=== PATIENT | male | born 1955 | race Caucasian/White ===

== ENCOUNTER 2023-12-10 08:15 | Day surgery (SDC) | payer OTHER ==
[2023-12-09 10:35] LABS: BASOPHILS # (AUTO) 0.1 K/uL (0.0-0.2); EOSINOPHILS # (AUTO) 0.2 K/uL (0.0-0.4); EOSINOPHILS % (AUTO) 2.7 % (0.0-4.0); HEMATOCRIT 47.9 % (36-54); HEMOGLOBIN 15.9 g/dL (14.0-18.0); LYMPHOCYTES # (AUTO) 2.3 K/uL (1.0-5.5); LYMPHOCYTES % (AUTO) 26.9 % (20.5-51.5); MEAN CORPUSCULAR HEMOGLOBIN 29 pg (27-31); MEAN CORPUSCULAR HGB CONC 33 % (32-36); MEAN CORPUSCULAR VOLUME 87 fL (79.0-98.0); MONOCYTES # (AUTO) 0.7 K/uL (0.0-1.0); MONOCYTES % (AUTO) 8.3 % (1.7-9.3); NEUTROPHILS # (AUTO) 5.2 K/uL (1.8-7.7); NEUTROPHILS % (AUTO) 61.1 % (40.0-70.0); PLATELET COUNT (AUTO) 247 K/uL (130-430); RED BLOOD CELL COUNT(AUTO) 5.48 MIL/uL (4.2-6.2); RED CELL DISTRIBUTION WIDTH 14.1 % (9.0-15.0); WHITE BLOOD COUNT (AUTO) 8.4 K/uL (4.8-10.8)
[2023-12-09 10:36] LABS: BILIRUBIN,URINE NEGATIVE (NEGATIVE); BLOOD, URINE NEGATIVE (NEGATIVE); CLARITY/URINE CLEAR (CLEAR); COLOR,URINE YELLOW (YELLOW); GLUCOSE,URINE NEGATIVE (NEGATIVE); KETONES,URINE NEGATIVE (NEGATIVE); LEUKOCYTE ESTERASE ,URINE NEGATIVE (NEGATIVE); NITRITE, URINE NEGATIVE (NEGATIVE); PROTEIN URINE NEGATIVE (NEGATIVE); UROBILINOGEN,URINE 0.2 (0.2-1.0)
[2023-12-09 10:52] LABS: PROTHROMBIN TIME 10.4 SECS (9.5-12.5)
[2023-12-09 10:55] LABS: ALBUMIN 3.7 g/dL (3.4-4.8); CALCIUM 8.9 mg/dL (8.4-11.0); CREATININE 0.94 mg/dL (0.55-1.30); POTASSIUM 4.6 mmol/L (3.5-5.1); TOTAL BILIRUBIN 0.7 mg/dL (0.0-1.0); TOTAL PROTEIN, SERUM 7.6 g/dL (6.4-8.3)
[~2023-12-10] VITALS: Ht 177.8 cm; Wt 111.1 kg
[~2023-12-10 08:15] MED LIST: ACETAMINOPHEN 500 MG TABLET PO ONE; CEFAZOLIN SOD 2 GM in D5W 50 ML IV ONE
[2023-12-10] MEDS ORDERED: LR 1,000 ML IV.SOLN IV ONE (10:01)
[2023-12-10] MEDS ORDERED: PROPOFOL 200MG/ 20ML VIAL (DIPRIVAN) IV ONE (10:01)
[2023-12-10] MEDS ORDERED: KETOROLAC TROMETHAMINE 30 MG VIAL ONE (10:01)
[2023-12-10] MEDS ORDERED: ceFAZolin SODIUM 1 GM VIAL ONE (10:01)
[2023-12-10] MEDS ORDERED: SEVOFLURANE 15 MIN GAS INH ONE (10:01)
[2023-12-10] MEDS ORDERED: ePHEDrine sulfate 50 MG/ML VIAL ONE (10:01)
[2023-12-10] MEDS ORDERED: SUCCINYLCHOLINE CHLORIDE 20 MG/ML(QUELICIN) ONE (10:01)
[2023-12-10] MEDS ORDERED: NS IRRIG SOLN 1000 ML IR ONE (10:01)
[2023-12-10] MEDS ORDERED: METOCLOPRAMIDE HCL 10 MG/2 ML VIAL ONE (10:01)
[2023-12-10] MEDS ORDERED: BUPIVACAINE /PF 0.25% 10 ML VIAL INJ ONE (10:01)
[2023-12-10] MEDS ORDERED: HYDROmorphone 2 MG/ML VIAL ONE (10:18)
[2023-12-10] MEDS ORDERED: METOCLOPRAMIDE HCL 10 MG/2 ML VIAL IVP PRN (10:45)
[2023-12-10] MEDS ORDERED: MEPERIDINE HCL/PF 25 MG/ML DISP.SYRIN IVP PRN (10:45)
[2023-12-10] MEDS ORDERED: HYDROmorphone 1 MG/ML INJ. CARTRIDGE IVP PRN ×2 (10:45)
[2023-12-10] MEDS: ONDANSETRON HCL 4 MG/2 ML VIAL IVP PRN (11:55)
[2023-12-10] MEDS ORDERED: ONDANSETRON HCL 4 MG/2 ML VIAL ONE (11:56)
[2023-12-10] MEDS ORDERED: MIDAZOLAM HCL 5 MG/5 ML VIAL IVP PRN (12:30)
[2023-12-10] MEDS ORDERED: DIPHENHYDRAMINE INJ 50 MG/ML VIAL ONE (12:33)
[2023-12-10] MEDS: DIPHENHYDRAMINE INJ 50 MG/ML VIAL IVP ONE (12:34)
[2023-12-10] MEDS: MECLIZINE HCL 25 MG TABLET (ANITVERT) PO ONE (13:21)
[2023-12-10 16:28] VITALS: BP_SYST 148; PULSE 77; RESP 16; TEMP 96.8
[2023-12-10 17:12] VITALS: BP_SYST 127; PULSE 74; RESP 16; TEMP 97.8; O2SAT 98
[2023-12-10 17:19] VITALS: BP_SYST 139; PULSE 73; RESP 16; TEMP 97.1; O2SAT 96
== END 2023-12-10 17:38 | disposition home or self-care (01) ==
LOC: SMU 08:15 → SDS 08:15 → SMU 16:00 → SDS 17:38
PROVIDERS: ATTEND Orthopaedic Surgery Sports Medicine
DX: S83.232A Complex tear of medial meniscus, current injury, left knee, initial encounter (principal); S83.272A Complex tear of lateral meniscus, current injury, left knee, initial encounter; M22.42 Chondromalacia patellae, left knee; M23.42 Loose body in knee, left knee; G89.29 Other chronic pain; I10 Essential (primary) hypertension; E78.5 Hyperlipidemia, unspecified; E66.01 Morbid (severe) obesity due to excess calories; Z68.35 Body mass index [BMI] 35.0-35.9, adult; Z79.899 Other long term (current) drug therapy; Z79.82 Long term (current) use of aspirin; X58.XXXA Exposure to other specified factors, initial encounter; Y93.89 Activity, other specified; Y92.89 Other specified places as the place of occurrence of the external cause; Y99.8 Other external cause status
CPT/HCPCS: 80053; 81001; 85025; 85610; 85730; 87081; 36415; 71046; 81003; 29880; 88305; 88311; J3490; J0690; J1200; J1885; J2765; J2405; J2704; J0330; J1170; J7060; J7120; J8597